=== PATIENT | female | born 1960 | race Caucasian/White ===

== ENCOUNTER → 2025-01-06 07:54 | Outpatient (REF) | payer OTHER, SELFPAY | LOC: HWWDC 07:54 | PROVIDERS: ATTENDING PHYSICIAN Family Medicine | DX: Z12.31 Encounter for screening mammogram for malignant neoplasm of breast (principal) | CPT/HCPCS: 77063; 77067 ==

== ENCOUNTER 2025-08-06 10:02 | Inpatient (IN) | payer OTHER, SELFPAY ==
[2025-08-06] VITALS (20 sets, daily range): BP systolic 101–147; BP diastolic 51–94; BMI 28.3
[2025-08-06 07:54] LABS: Hematocrit 16.5 % (37.0-47.0); Hemoglobin 4.2 g/dL (12.0-16.0); Mean Corp Hgb Conc. 25.5 g/dL (33.0-37.0); Mean Corpuscular Volume 62.7 fL (81.0-99.0); Nucleated Red Blood Cells % 0 %; Platelet Count 386 10^3/uL (130-400); Red Cell Dist. Width 21.2 % (11.5-14.5)
[2025-08-06 08:05] LABS: ALT (SGPT) 15 U/L (0-35); AST (SGOT) 17 U/L (14-36); Albumin 3.9 g/dl (3.5-5.0); Alkaline Phosphatase 64 U/L (38-126); Blood Urea Nitrogen 18 mg/dl (7-17); Calcium 8.9 mg/dl (8.4-10.2); Carbon Dioxide 25 mmol/L (22-30); Chloride 107 mmol/L (98-107); Glucose 110 mg/dl (70-99); Potassium 4.0 mmol/L (3.5-5.1); Sodium 140 mmol/L (135-145); Total Protein 6.7 g/dl (6.3-8.2); eGFR > 60.00
--- NOTE | 2025-08-06 08:21 | ED.GENMED ---
History of Present Illness
<Edis Segovia PA-C - Last Filed: 08/06/25 14:36>
General
Chief Complaint: Abnormal Lab Value
Time Seen by Provider: 08/06/25 08:08
History of Present Illness
History of Present Illness:
65-year-old female with history of anxiety and depression presents to the emergency department for eval ration of low hemoglobin. Patient states has been feeling progressively fatigued for the past month or more, had outpatient labs checked this
week that revealed a hemoglobin below 5. She denies any black or bloody stools. Reports severe exertional fatigue and muscle aches. Denies bleeding gums or easy bruising. She does note that for the past several months she has been dealing with a
chronic neck pain issue and has been taking NSAIDs but not on a daily basis, estimates 3-4 times weekly. Denies any recent steroids. No significant alcohol intake and denies tobacco use. She also reports poor oral intake and a poor appetite
during this time. Was recently started on sertraline by her primary care physician for anxiety and depression. Metabolic panel and TSH were checked approximately 1 month ago by her primary doctor, these were unremarkable
Review of Systems
<Edis Segovia PA-C - Last Filed: 08/06/25 14:36>
Review of Systems
Allergies reviewed?: Yes
All Other Systems: ROS reviewed and negative except as documented in HPI and ROS
Phy Exam
<Edis Segovia PA-C - Last Filed: 08/06/25 14:36>
Physical Exam
Physical Exam:
GEN: Well appearing albeit pale, NAD, WDWN
Eyes: PERRLA, EOMs intact, no scleral icterus
HENT: NCAT, oral mucosa moist, no JVD, no cervical adenopathy.
Lungs: CTAB, no wheezes, rales, rhonchi, normal chest wall excursion
Cardiac: RRR, no M/R/G, no peripheral edema. Radial pulses 2+ bilat
Abdomen: S, NT, ND, NABS, no masses or hepatosplenomegaly
Rectal: Scant brown stool in the rectal vault, heme-negative
Neuro: AO x 3
MSK: No gross deformity or ecchymosis. No edema. No digital clubbing
Skin: No rashes or petechiae, grossly pale
Psych: Calm, cooperative, proper hygiene
Course
<Edis Segovia PA-C - Last Filed: 08/06/25 14:36>
Orders/Labs/Results
Orders:
Orders
08/06/25 Breakfast
NPO
Allow oral meds: No
Allow clear liquids: No
NPO with Ice Chips: No
08/06/25 07:40
Complete Blood Count/With Diff Urgent
Comprehensive Metabolic Panel Urgent
Ferritin Urgent
Comment: ADD
Folate Urgent
Comment: ADD
Iron Urgent
Comment: ADD
LDH Urgent
Comment: ADD
Reticulocyte Count Urgent
Comment: ADD
TSH Reflex To Free T4 Urgent
Comment: ADD
Total Iron Binding Urgent
Comment: ADD
Vitamin B12 Urgent
Comment: ADD
08/06/25 08:04
Type+Screen Routine
BBK Wristband Number:
08/06/25 08:20
Add On- LAB Urgent
Tests Added?: iron, TIBC, ferritin
Blood Bank Products [* Blood Bank Products] Urgent
Blood Bank Products: *Packed RBC Leuko (PRBC's
Quantity: 2
Transfuse Today: Yes
Reason: Anemia
08/06/25 09:02
Add On- LAB Routine
Tests Added?: b12, folate, LDH, retics
08/06/25 09:46
Admit/Transfer Patient As Directed
Co-Sign Provider:
Level of Care: Inpatient admission
Assign to:: Medical/Surgical
Physician / Group: Trey
Diagnosis: anemia
Reason for Hospitalization: anemia
Expected length of stay greater than two midnights?: Yes
ELOS- Estimated Length of Stay in days: 3
I certify the patient meets the requirements for IP care: Yes
PRN Pain Medication Management As Directed
May give lesser potent ordered pain med per pt: Yes
preference::
Protocol:: Medication orders for pain may be administered in a
manner that supports deferring to patient preference
when the pt is:
- Requesting an ordered lesser potent pain medication.
Least to most potent pain medications are defined
as: acetaminophen < NSAID < tramadol < opioids
(morphine, oxycodone, hydromorphone).
- Requesting a lesser dose of the same medication IF
ORDERED.
- Requesting a less intrusive route of administration
if both routes are prescribed by the provider (PO <
IV).
08/06/25 09:47
Code Status As Directed
Resuscitation Status: Full Code
08/06/25 09:54
Add On- LAB Routine
Tests Added?: TSH with reflex FT4
08/06/25 10:00
0.9% Sodium Chloride [Nss (Preservative Free)] 10 ml IV BID
Flush (0.9% Sodium Chloride) [Flush (Nss)] See Dose Instructions IV PER PROTOCOL
Pantoprazole [Protonix IV] 40 mg IV BID
08/06/25 12:16
Acetaminophen [Tylenol] 650 mg PO Q4HPRN PRN
Bisacodyl [Dulcolax] 10 mg RECTAL [id number] PRN
Calcium 200mg(Ca. Carb. 500mg) [Tums Chewable Tablet] 200 mg PO BIDPRN PRN GERD
Dextrose 5%/Lactringers 1000ML [D5lr] 1,000 ml IV 70 mls/hr
Docusate W/Senna [Senokot-S] 1 tablet PO BIDPRN PRN
Ondansetron Injectable [Zofran] 4 mg IV Q8HPRN PRN
Polyethylene Glycol Powder [Miralax] 17 grams PO DAILYPRN PRN
Tramadol HCl [Ultram] 50 mg PO Q6HPRN PRN
08/06/25 12:16
GASTROINTESTINAL CONSULT Routine
Consulting Provider: Tabby Portillo
Was physician already notified: Yes
Reason for consult: anemia, suspect PUD
Activity As Directed
Activity Level: Out of Bed-Early Mobility
Pneumatic Compression Sleeves As Directed
Type: Knee high
Vital Signs As Directed
Frequency: Per unit guidelines
DX Deep Vein Thrombosis Video Routine
08/06/25 12:32
H&H Q6H
08/06/25 14:00
Ferric Gluconate [Ferrlecit] 125 mg 0.9% Sodium Chloride 100 ml [Nss] 100 ml IV DAILY@1400
08/06/25 18:16
H&H Q6H
08/06/25 22:00
Montelukast Sodium [Singulair] 10 mg PO HS
Sertraline HCl [Zoloft] 25 mg PO HS
08/07/25 00:16
H&H Q6H
08/07/25 06:16
H&H Q6H
08/07/25 08:00
Cholecalciferol (Vitamin D3) [VITAMIN D3 (cholecalciferol)] 25 mcg PO DAILY
08/07/25 12:16
H&H Q6H
Abnormal Lab Results
08/06/25 08/06/25
07:40 08:04
RBC 2.63 L 10^6/uL
(4.20-5.40)
Hgb 4.2 L* g/dL
(12.0-16.0)
Hct 16.5 L* %
(37.0-47.0)
MCV 62.7 L fL
(81.0-99.0)
MCH 16.0 L pg
(27.0-31.0)
MCHC 25.5 L g/dL
(33.0-37.0)
RDW 21.2 H %
(11.5-14.5)
MPV 10.7 H fL
(7.4-10.4)
BUN 18 H mg/dl
(7-17)
Glucose 110 H mg/dl
(70-99)
Iron 21 L ug/dl
(37-170)
TIBC 498 H ug/dl
(265-497)
% Saturation 4 L %
(20-50)
Crossmatch IS Only See Detail
08/06/25 07:40
08/06/25 07:40
Vital Signs
Initial and Last Documented VS:
Initial Vital Signs
Temp Pulse Resp BP Pulse Ox
98.6 F 91 16 101/51 97
08/06/25 07:20 08/06/25 07:20 08/06/25 07:20 08/06/25 07:20 08/06/25 07:20
Last Documented Vital Signs
Temp Pulse Resp BP Pulse Ox
98.2 F 82 18 141/66 99
08/06/25 13:27 08/06/25 13:27 08/06/25 13:27 08/06/25 13:27 08/06/25 11:30
<Jacoby Ley MD - Last Filed: 08/06/25 08:48>
Orders/Labs/Results
Orders:
Orders
08/06/25 Breakfast
NPO
Allow oral meds: No
Allow clear liquids: No
NPO with Ice Chips: No
08/06/25 07:40
Complete Blood Count/With Diff Urgent
Comprehensive Metabolic Panel Urgent
Ferritin Urgent
Comment: ADD
Folate Urgent
Comment: ADD
Iron Urgent
Comment: ADD
LDH Urgent
Comment: ADD
Reticulocyte Count Urgent
Comment: ADD
TSH Reflex To Free T4 Urgent
Comment: ADD
Total Iron Binding Urgent
Comment: ADD
Vitamin B12 Urgent
Comment: ADD
08/06/25 08:04
Type+Screen Routine
BBK Wristband Number:
08/06/25 08:20
Add On- LAB Urgent
Tests Added?: iron, TIBC, ferritin
Blood Bank Products [* Blood Bank Products] Urgent
Blood Bank Products: *Packed RBC Leuko (PRBC's
Quantity: 2
Transfuse Today: Yes
Reason: Anemia
08/06/25 09:02
Add On- LAB Routine
Tests Added?: b12, folate, LDH, retics
08/06/25 09:46
Admit/Transfer Patient As Directed
Co-Sign Provider:
Level of Care: Inpatient admission
Assign to:: Medical/Surgical
Physician / Group: Trey
Diagnosis: anemia
Reason for Hospitalization: anemia
Expected length of stay greater than two midnights?: Yes
ELOS- Estimated Length of Stay in days: 3
I certify the patient meets the requirements for IP care: Yes
PRN Pain Medication Management As Directed
May give lesser potent ordered pain med per pt: Yes
preference::
Protocol:: Medication orders for pain may be administered in a
manner that supports deferring to patient preference
when the pt is:
- Requesting an ordered lesser potent pain medication.
Least to most potent pain medications are defined
as: acetaminophen < NSAID < tramadol < opioids
(morphine, oxycodone, hydromorphone).
- Requesting a lesser dose of the same medication IF
ORDERED.
- Requesting a less intrusive route of administration
if both routes are prescribed by the provider (PO <
IV).
08/06/25 09:47
Code Status As Directed
Resuscitation Status: Full Code
08/06/25 09:54
Add On- LAB Routine
Tests Added?: TSH with reflex FT4
08/06/25 10:00
0.9% Sodium Chloride [Nss (Preservative Free)] 10 ml IV BID
Flush (0.9% Sodium Chloride) [Flush (Nss)] See Dose Instructions IV PER PROTOCOL
Pantoprazole [Protonix IV] 40 mg IV BID
08/06/25 12:16
Acetaminophen [Tylenol] 650 mg PO Q4HPRN PRN
Bisacodyl [Dulcolax] 10 mg RECTAL [id number] PRN
Calcium 200mg(Ca. Carb. 500mg) [Tums Chewable Tablet] 200 mg PO BIDPRN PRN GERD
Dextrose 5%/Lactringers 1000ML [D5lr] 1,000 ml IV 70 mls/hr
Docusate W/Senna [Senokot-S] 1 tablet PO BIDPRN PRN
Ondansetron Injectable [Zofran] 4 mg IV Q8HPRN PRN
Polyethylene Glycol Powder [Miralax] 17 grams PO DAILYPRN PRN
Tramadol HCl [Ultram] 50 mg PO Q6HPRN PRN
08/06/25 12:16
GASTROINTESTINAL CONSULT Routine
Consulting Provider: Tabby Portillo
Was physician already notified: Yes
Reason for consult: anemia, suspect PUD
Activity As Directed
Activity Level: Out of Bed-Early Mobility
Pneumatic Compression Sleeves As Directed
Type: Knee high
Vital Signs As Directed
Frequency: Per unit guidelines
DX Deep Vein Thrombosis Video Routine
08/06/25 12:32
H&H Q6H
08/06/25 14:00
Ferric Gluconate [Ferrlecit] 125 mg 0.9% Sodium Chloride 100 ml [Nss] 100 ml IV DAILY@1400
08/06/25 18:16
H&H Q6H
08/06/25 22:00
Montelukast Sodium [Singulair] 10 mg PO HS
Sertraline HCl [Zoloft] 25 mg PO HS
08/07/25 00:16
H&H Q6H
08/07/25 06:16
H&H Q6H
08/07/25 08:00
Cholecalciferol (Vitamin D3) [VITAMIN D3 (cholecalciferol)] 25 mcg PO DAILY
08/07/25 12:16
H&H Q6H
Abnormal Lab Results
08/06/25 08/06/25
07:40 08:04
RBC 2.63 L 10^6/uL
(4.20-5.40)
Hgb 4.2 L* g/dL
(12.0-16.0)
Hct 16.5 L* %
(37.0-47.0)
MCV 62.7 L fL
(81.0-99.0)
MCH 16.0 L pg
(27.0-31.0)
MCHC 25.5 L g/dL
(33.0-37.0)
RDW 21.2 H %
(11.5-14.5)
MPV 10.7 H fL
(7.4-10.4)
BUN 18 H mg/dl
(7-17)
Glucose 110 H mg/dl
(70-99)
Iron 21 L ug/dl
(37-170)
TIBC 498 H ug/dl
(265-497)
% Saturation 4 L %
(20-50)
Crossmatch IS Only See Detail
08/06/25 07:40
08/06/25 07:40
Vital Signs
Initial and Last Documented VS:
Initial Vital Signs
Temp Pulse Resp BP Pulse Ox
98.6 F 91 16 101/51 97
08/06/25 07:20 08/06/25 07:20 08/06/25 07:20 08/06/25 07:20 08/06/25 07:20
Last Documented Vital Signs
Temp Pulse Resp BP Pulse Ox
98.2 F 82 18 141/66 99
08/06/25 13:27 08/06/25 13:27 08/06/25 13:27 08/06/25 13:27 08/06/25 11:30
<Edis Segovia PA-C - Last Filed: 08/06/25 14:36>
MDM/Problems Addressed
MDM/Problems Addressed:
Due to severity of new anemia we will admit for further workup and blood transfusions. She has heme-negative stool however this does not completely rule out potential for GI bleeding, her essentially normal BUN supports the idea of anemia not due
to GI bleeding. She is clinically stable, blood products ordered in the ED. Of note her hemoglobin was 12.0 in October of this year according to results faxed from her primary care physician
<dEis Segovia PA-C - Last Filed: 08/06/25 14:36>
*Pulse Oximetry
SaO2: 97
Oxygen Mode of Delivery: Room air
Patient hypoxic: no
*Critical Care Note
Total Time (30-74mins, 75-104mins- exclusive of procedures): Not Applicable
ED Attending Note
<Edis Segovia PA-C - Last Filed: 08/06/25 14:36>
-
Portions of this chart may have been created with voice recognition software.� Occasional wrong word or��sound alike� substitutions may have occurred due to the inherent limitations of voice recognition software.
<Jacoby Ley MD - Last Filed: 08/06/25 08:48>
ED Attending Note
Patient seen and examined by attending physician: Yes
ED Attending Note:
I have seen and evaluated the patient with a [id number] encounter. I have spoken to the advance practicer provider and involved in the medical history, the physical exam, medical decision making.
Evaluation and management service: agree unless noted differently below.
Results interpretation: agree unless noted differently below.
Focused HPI: 65-year-old female with history of hyperlipidemia who presents to the ER for evaluation of severe fatigue and shortness of breath, outpatient labs showed that she is severely anemic. Patient reports that for the past 2 or 3 months she
has had increased fatigue/exhaustion and has noted shortness of breath with exertion. She says symptoms have been progressively worse. 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
season. Saw her primary doctor who initially thought it could be from stress and she was recently started on Zoloft however symptoms were worsening which ultimately prompted lab work. Blood drawn yesterday showed hemoglobin of 4 and patient was
referred to the ER. She denies any history of anemia aside from mild transient anemia in her teen years. She denies any history of bleeding including vaginal bleeding (she is postmenopausal), GI bleeding. She denies any history of alcohol use.
She does admit that her appetite has been poor lately but generally eating and drinking appropriately.
Physical exam: Awake alert no distress. Vital signs are normal including blood pressure 101/51 with heart rate in the 80s during my assessment. She is somewhat pale appearing. Hemoccult negative per PA exam.
Medical Decision Makin-year-old female presents with fatigue and shortness of breath, noted to have new severe anemia on outpatient labs. Labs drawn here confirm significant anemia with a hemoglobin of 4.2 microcytic with MCV of 62.7. Plan to
transfuse PRBCs for symptomatic anemia, need for continued workup. Will send iron studies prior to transfusion.
Discharge Plan
Departure
Patient Disposition: Admit
Date of Disposition: 08/06/25
Time of Disposition: 09:04
Admit to: Med/Surg
Presentation/result/management discussed w/ accepting MD/DO: Hospitalist
Discharge Problem:
Symptomatic anemia
Interventions
Interventions:
*Risk Screen - Suicide Last Done: 08/06/25 07:20
*General Assessment Last Done: 08/06/25 07:20
*Neglect/Abuse Screening Last Done: 08/06/25 09:37
*ED- Fall Risk Assessment Last Done: 08/06/25 11:16
*ED COVID-19 Vaccine History Last Done: 08/06/25 07:20
*ED Influenza Vaccine History Last Done: 08/06/25 07:20
*Nursing Disposition Last Done: 08/06/25 11:16
Discharge Date and Time
Discharge Date/Time: 08/06/25 11:17
[2025-08-06 08:41] LABS: Iron 21 ug/dl (37-170)
[2025-08-06 08:50] LABS: Total Iron Binding Capacity 498 ug/dl (265-497)
[2025-08-06] MEDS: PROTONIX IV 40 MG IV ×2 (09:43→20:02)
[2025-08-06] MEDS: NSS (PRESERVATIVE FREE) 10 ML IV ×2 (09:43→20:02)
--- NOTE | 2025-08-06 09:49 | HPS.HSE ---
Family Physician
-
Family Physician: Patricia Alberts
Chief Complaint
-
weakness
History of Present Illness
65yo F with PMHx of anxiety, neck pain 2/2 disk bulge, GERD came with worsening weakness for 2 month, found severe anemia. FOBT neg in ED. Also c/o chronic indigestion, that recently significantly worsened. Using NSAIDs for neck pain. ALso episodes
of dark, (but not frankly black) stool
Medical History
Past Medical History
Past Medical History: Reports Other
Additional Past Medical History:
see above
Past Surgical History: Reports None
Social History
Tobacco: Non-smoker
Alcohol: Occasional
Drug: None
Family History
Family History: Not pertinent
Allergies / Home Medications
Allergies reflects when Allergies were last updated in [employer].
Home Medications with original date entered in [employer]
Allergy/Medication List:
Allergies
Allergy/AdvReac Type Severity Reaction Status Date / Time
No Known Allergies Allergy Verified 08/06/25 07:23
Home Medications
calcium carbonate (Tums) 200 mg PO BIDPRN PRN GERD 08/06/25
cholecalciferol (vitamin D3) 25 mcg (1,000 unit) tablet (Vitamin D3) 25 mcg PO DAILY Supplement 08/06/25
ibuprofen 200 mg capsule (Advil Liqui-Gel) 200 mg PO Q6HPRN PRN MILD PAIN 08/06/25
montelukast 10 mg tablet (Singulair) 10 mg PO HS Allergies 08/06/25
sertraline 25 mg tablet 25 mg PO HS Mental Health/Anxiety 08/06/25
Review of Systems
-
History Source: Patient
A 12 point ROS was completed and negative except as noted: Yes
Constitutional: Reports Fatigue and Sleep Disturbance
Physical Exam
Vital Signs
Vital Signs
Temp Pulse Resp BP Pulse Ox
98.6 F 89 15 101/51 97
08/06/25 07:20 08/06/25 08:15 08/06/25 08:15 08/06/25 07:20 08/06/25 08:21
Physical Exam
General: No Apparent Distress, Comfortable and Conversant
HEENT: NormoCephalic, Anicteric and Moist mucous membranes; No [place] Conjunctivae
Respiratory: Clear; No Wheezes or Crackles
Cardiac: S1/S2 and Regular Rhythm; No Tachycardia
GI: Soft, Non Tender and Non Distended
Genito-urinary: No costovertebral tender
Musculoskeletal: No Clubbing, No Cyanosis and No Edema
Skin: Warm; No Rash or Jaundice
Neuro: Awake, Alert, Oriented and AO x 3
Psych: Calm
Laboratory Results
-
08/06/25 07:40
08/06/25 07:40
Laboratory Results
Total Bilirubin 0.7 mg/dl (0.2-1.3) 08/06/25 07:40
AST 17 U/L (14-36) 08/06/25 07:40
ALT 15 U/L (0-35) 08/06/25 07:40
Alkaline Phosphatase 64 U/L (38-126) 08/06/25 07:40
Data Reviewed
-
Lab Data: Labs Reviewed by me
Impression/Plan
-
A/P:
#Acute on chronic blood loss anemia, symptomatic most likely 2/2 PUD
PPI BID IV
NPO pending GI consult
Serial H&H, transfuse to keep Hgb>7.0
Avoid antiplatelets, anticoag, NSAIDs
#Anxiety d/o
#Chronic neck pain
cont home meds
pain meds
continue to work with established orthopedics: planned for laser therapy and possible injections as outpatient
DVT ppx SCDs
Full code
I have spent at least 76min reviewing chart, test results, communication with consultants and providing direct patient care
[2025-08-06 10:14] LABS: Reticulocyte Count 1.0 % (0.4-2.8)
[2025-08-06 10:15] LABS: LDH 185 U/L (120-246)
[2025-08-06 10:53] LABS: Normal RBC Morphology No
[2025-08-06 10:54] LABS: Anisocytosis 2+; Hypochromasia 3+; Ovalocytes 2+; Polychromasia 2+
[2025-08-06 10:55] LABS: Acanthocytes FEW
[2025-08-06 13:32] LABS: Hematocrit 19.9 % (37.0-47.0); Hemoglobin 5.5 g/dL (12.0-16.0)
--- NOTE | 2025-08-06 14:31 | CON.GI ---
Consultation
-
Date/Time Consultation Requested: 08/06/2025
Date/Time Consultation Performed: 08/06/2025
Requesting Provider: Emergency room
Performing Provider: Dr. Portillo
Reason for Consultation: Symptomatic iron deficiency anemia requiring transfusion
Medical History
Chief Complaint / HPI
Chief Complaint: Symptomatic anemia
History of Present Illness:
Yeni is a 65-year-old female with history of chronic intermittent dysphagia to solids, progressive worsening regurgitation and heartburn not on PPI, family history of colon cancer, chronic neck pain on roughly twice a week NSAIDs who was seen by
her PCP on 1028 for a few months of significant fatigue, dyspnea on exertion found to have a hemoglobin of 4.4 with an MCV of 63 sent to the emergency room for iron deficiency anemia.
Patient states she has lost roughly 20 pounds from lack of appetite over the past couple of months. Her upper GI symptoms have worsened and she does get nocturnal regurgitation that can wake her from sleep. She does not feel like the dysphagia has
progressed or increased in frequency.
Denies any abdominal pain. No abdominal surgeries. Her last endoscopy was in [address] 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
biopsied. 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 No mention of the submucosal lesion in 2018. Last colonoscopy which is done every 5 years due to family history was in 2022 and normal with a good prep.
Patient denies any overt bleeding. No epistaxis gum bleeding, no period in over 10 years. Her stools are brown and in the emergency room were heme-negative.
She has never had a transfusion and was never told she was anemic.
I reviewed her blood work from November 2024 from her [email or web address] which showed a hemoglobin of 12 with a normal MCV.
08/2023- colon sosa good prep to TI - The examined portion of the ileum was normal. entire colon normal, IH
07/2018- EGD sosa - Tortuous esophagus - Z-line variable, 35 cm from the incisors. Biopsied. - Small hiatal hernia - No gross lesions in the stomach - Normal examined duodenum. bx neg metaplasia, h pylori
07/2018 colon salguti - The examined portion of the ileum was normal. - One 2 mm polyp in the ascending colon, removed with a jumbo cold forceps. Resected and retrieved - Internal hemorrhoids. bx lymphoid aggregate
09/2013 EGD salguti - Normal examined duodenum. - Congestive gastropathy. Biopsied. 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 Biopsied. - Hiatus hernia. - Esophageal polyp(s) were found. Biopsied-line variable, 35
cm from the incisors. Biopsied - No gross lesions in esophagus. bx GE junction goblet cell metaplasia no dysplasia mass neg
09/2013 colon salguti Non-thrombosed external hemorrhoids found on perianal exam - The examined portion of the ileum was normal.- One 1 mm polyp in the transverse colon. Resected and
retrieved - One 1 mm polyp in the sigmoid colon. Resected and retrieved. bx adenomatous polyps, benign HP polyp, no adenoma seen
11/2009 EGD chirla Hiatus hernia - Esophageal mucosal changes suspicious for eosinophilic esophagitis- Normal examined duodenum.
Past Medical History
Past Medical History: Other (Chronic GERD, not on PPI, musculoskeletal pain on twice a week NSAIDs)
Past Surgical History: None
Social History
Tobacco: Non-Smoker
Alcohol: None
Drug: None
Personal:
Living: With Family
Family History
Family History: Cancer (Father with colon cancer)
Allergies / Home Medications
Allergy/AdvReac Type Severity Reaction Status Date / Time
No Known Allergies Allergy Verified 08/06/25 07:23
�Medication �Instructions �Recorded
calcium carbonate (Tums) 200 mg PO BIDPRN PRN GERD 08/06/25
cholecalciferol (vitamin D3) 25 25 mcg PO DAILY Supplement 08/06/25
mcg (1,000 unit) tablet (Vitamin
D3)
ibuprofen 200 mg capsule (Advil 200 mg PO Q6HPRN PRN MILD PAIN 08/06/25
Liqui-Gel)
montelukast 10 mg tablet 10 mg PO HS Allergies 08/06/25
(Singulair)
sertraline 25 mg tablet 25 mg PO HS Mental Health/Anxiety 08/06/25
Review of Systems
-
History Source: Patient
All other systems: A 12 pt ROS was Negative except as stated above in HPI
Vital Signs
Temp Pulse Resp BP Pulse Ox
98.2 F 82 18 141/66 99
08/06/25 13:27 08/06/25 13:27 08/06/25 13:27 08/06/25 13:27 08/06/25 11:30
Physical Exam
Exam
General: Well Developed, Well Nourished, No Apparent Distress and Comfortable
HEENT: Anicteric
Respiratory: Clear
GI: Soft and Non Tender
Neuro: AO x 3
Psych: Calm
Results
WBC 5.7 10^3/uL (4.8-10.8) 08/06/25 07:40
Hgb 5.5 g/dL (12.0-16.0) L* D 08/06/25 12:32
Hct 19.9 % (37.0-47.0) L* 08/06/25 12:32
MCV 62.7 fL (81.0-99.0) L 08/06/25 07:40
Plt Count 386 10^3/uL (130-400) 08/06/25 07:40
Absolute Neuts (auto) 3.5 10^3/uL (1.4-6.5) 08/06/25 07:40
Sodium 140 mmol/L (135-145) 08/06/25 07:40
Potassium 4.0 mmol/L (3.5-5.1) 08/06/25 07:40
Chloride 107 mmol/L (98-107) 08/06/25 07:40
Carbon Dioxide 25 mmol/L (22-30) 08/06/25 07:40
BUN 18 mg/dl (7-17) H 08/06/25 07:40
Creatinine 0.8 mg/dL (0.6-1.0) 08/06/25 07:40
Calcium 8.9 mg/dl (8.4-10.2) 08/06/25 07:40
Total Bilirubin 0.7 mg/dl (0.2-1.3) 08/06/25 07:40
AST 17 U/L (14-36) 08/06/25 07:40
ALT 15 U/L (0-35) 08/06/25 07:40
Alkaline Phosphatase 64 U/L (38-126) 08/06/25 07:40
Diagnostic Image Results:
08/2023- colon salguti good prep to TI - The examined portion of the ileum was normal. entire colon normal, IH
07/2018- EGD salguti - Tortuous esophagus - Z-line variable, 35 cm from the incisors. Biopsied. - Small hiatal hernia - No gross lesions in the stomach - Normal examined duodenum. bx neg metaplasia, h pylori
07/2018 colon salguti - The examined portion of the ileum was normal. - One 2 mm polyp in the ascending colon, removed with a jumbo cold forceps. Resected and retrieved - Internal hemorrhoids. bx lymphoid aggregate
09/2013 EGD salguti - Normal examined duodenum. - Congestive gastropathy. Biopsied. 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 Biopsied. - Hiatus hernia. - Esophageal polyp(s) were found. Biopsied-line variable, 35
cm from the incisors. Biopsied - No gross lesions in esophagus. bx GE junction goblet cell metaplasia no dysplasia mass neg
09/2013 colon salguti Non-thrombosed external hemorrhoids found on perianal exam - The examined portion of the ileum was normal.- One 1 mm polyp in the transverse colon. Resected and
retrieved - One 1 mm polyp in the sigmoid colon. Resected and retrieved. bx adenomatous polyps, benign HP polyp, no adenoma seen
11/2009 EGD chirla Hiatus hernia - Esophageal mucosal changes suspicious for eosinophilic esophagitis- Normal examined duodenum.
Assessment / Plan
-
Yeni is a 65-year-old female with history of chronic intermittent dysphagia to solids, progressive worsening regurgitation and heartburn not on PPI, family history of colon cancer, chronic neck pain on roughly twice a week NSAIDs who was seen by
her PCP on 1027 for a few months of significant fatigue, dyspnea on exertion found to have a hemoglobin of 4.4 with an MCV of 63 sent to the emergency room for iron deficiency anemia.
# Symptomatic microcytic iron deficiency anemia, heme-negative, hemodynamically stable
-- Normal hemoglobin in November 2024
-- Takes twice a week NSAIDs for neck pain
-- No overt bleeding, heme-negative
--Worsening upper GI symptoms with nonprogressive dysphagia, worsening heartburn and regurgitation with nocturnal awakenings, not on PPI taking Tums more regularly
-- 20 pound weight loss; up-to-date with mammogram
Plan for EGD and colonoscopy tomorrow
Once daily PPI is fine. DC Q6 hemoglobins, every 12 is fine, check coags, CMP in the morning
Clear liquid diet, n.p.o. 4 hours prior to procedure
IV iron
Data Reviewed
-
Old Records: Reviewed
Time spent with patient (in minutes): 62
-
-
Thank you for consultation and allowing me to participate in the patient's care. Please call the pest control worker GI physician during the after hours with any questions or concerns.
[2025-08-06] MEDS: FERRLECIT 110 MG IV (15:06)
[2025-08-06] MEDS: D5LR 1000 IV (15:09)
[2025-08-06 15:25] LABS: Ferritin 4.9 ng/ml (11.1-264.0)
[2025-08-06 15:57] LABS: Folate 18.8 ng/ml (2.76-20); Vitamin B12 327 pg/ml (239-931)
[2025-08-06] MEDS: NULYTELY SOLUTION 4 LITERS PO (17:26)
[2025-08-06] MEDS: ZOFRAN 4 MG IV (20:00)
[2025-08-06 21:07] LABS: Hemoglobin 8.4 g/dL (12.0-16.0)
[2025-08-06] MEDS: ZOLOFT 25 MG PO (21:41)
[2025-08-07] MEDS: PROTONIX IV 40 MG IV ×2 (07:35→20:06)
[2025-08-07] MEDS: NSS (PRESERVATIVE FREE) 10 ML IV ×2 (07:35→20:06)
[2025-08-07 08:29] LABS: Hemoglobin 7.9 g/dL (12.0-16.0)
[2025-08-07 08:30] VITALS: BP 125/58
[2025-08-07 08:39] LABS: INR 1.06; PT 14.2 Sec (11.4-14.6)
[2025-08-07 08:40] LABS: APTT 28.3 Sec (23.4-35.0)
[2025-08-07 09:48] VITALS: BP 96/66
[2025-08-07 10:00] VITALS: BP 101/67
--- NOTE | 2025-08-07 10:24 | PTCARENOTE ---
Pt returned from GI lab at 1015, assisted x 1 back to bed. Informed pt her diet was changed to regular. She will order.
--- NOTE | 2025-08-07 10:27 | W.PN.HOSP.TC ---
Today's Communication/Plan
-
see PN
Assessment / Plan
Assessment / Plan
65yo F with PMHx of anxiety, neck pain 2/2 disk bulge, GERD came with worsening weakness for 2 month, found severe anemia. FOBT neg in ED. Also c/o chronic indigestion, that recently significantly worsened. Using NSAIDs for neck pain. ALso episodes
of dark, (but not frankly black) stool. Improved after 3 units PRBC, GI for EGD/colonoscopy
A/P:
#Acute on chronic blood loss anemia, symptomatic most likely 2/2 PUD
ADELINA
PPI BID IV
NPO pending GI consult
Serial H&H, transfuse to keep Hgb>7.0
Avoid antiplatelets, anticoag, NSAIDs
If EGD/COlonoscopy unremarkable - outpatient capsule endoscopy and Hematology, however no concern for hemolysis as of inpatient stay with normal LDH
#Anxiety d/o
#Chronic neck pain
cont home meds
pain meds
continue to work with established orthopedics: planned for laser therapy and possible injections as outpatient
DVT ppx SCDs
Full code
I have spent at least 56min reviewing chart, test results, communication with consultants and providing direct patient care
Anticipated Discharge: Within 24 hours
Subjective/Interval History
-
Date of Service: August 07, 2025
Objective Data
-
Labs:
Laboratory Results
08/07/25
08:12
Hgb 7.9 L
PT 14.2
INR 1.06
APTT 28.3
Vital Signs:
Vital Signs
Temp Pulse Resp BP Pulse Ox
98.6 F 74 14 101/67 99
08/07/25 10:03 08/07/25 10:00 08/07/25 10:00 08/07/25 10:00 08/07/25 10:03
I&O
08/06/25 08/07/25 08/08/25
06:59 06:59 06:59
Intake Total 1841
Balance 1841
Review of Systems
-
History Source: Patient
All other systems: Reviewed and negative
Physical Exam
-
General: No Apparent Distress
HEENT: Normocephalic
Respiratory: Clear to Auscultation
Cardiac: Regular Rhythm
GI: Soft, Nontender and Nondistended
Genito-urinary: No Costovertebral Tender
Musculoskeletal: No Clubbing, No Cyanosis and No Edema
Neuro: Awake, Alert, Oriented and AO x 3
Psych: Calm
[2025-08-07] MEDS: VITAMIN D3 (cholecalciferol) 25 MCG PO (11:42)
[2025-08-07] MEDS: FERRLECIT 110 MG IV (13:01)
--- NOTE | 2025-08-07 14:34 | PN.CDI ---
CDI
- -
CDI:
Physician Documentation Request
Admit Date: 08/06/25 10:02
Dear Doctor,
Please review the following and provide your response in the progress notes.
Clinical Indicators:
Pt admitted with Acute on Chronic Bloodloss anemia
Colonoscopy report, ' Iron deficiency likely from hiatal hernia and David's erosions.... PPi BID for 1 month then daily indefinitely...'
Please clarify the suspected acuity of the ( David erosions ).
Acute
Chronic
Acute on Chronic
'Other ( please specify)
Use of terms such as suspected, likely, concern for, or probable (associated with a specific diagnosis that is being evaluated, monitored, or treated as if it exists) are acceptable and can be coded in the inpatient setting, when documented at the
time of discharge.
Thank you,
Kindra Guerrero RN
CDI Specialist
[facility] [employer]
Please use your independent medical judgment in providing your response.
--- NOTE | 2025-08-07 14:40 | PN.CDI ---
CDI
- -
CDI:
Physician Documentation Request
Admit Date: 08/06/25 10:02
Dear Doctor Trey,
Please review the following and provide your response in the progress notes.
Clinical Indicators:
Pt admitted with Acute on Chronic Bloodloss anemia
Nutrition consult 08/06,' Pt reports significant 20lb, 11.4% weight loss x 2 months. Pt and family report decreased intake at all 3 meals and elimination of between meal snacks. Pt unclear about the cause of decreased appetite, denying
N/V/difficulty swallowing. Given hx dysphagia, it would be beneficial to have swallow evaluation when diet advanced. Pt meets criteria for severe protein calorie malnutrition of chronic illness with >7.5% wt loss x 3 months, prolonged poor intake
prior to hospital admit <75% for >1 month. Nutrition to follow diet advancement, results GI work up as per level of care....'
Based on the above information and your assessment, which of the following most accurately represents the patient's nutritional status?
Severe Protein Calorie Malnutrition
Other (please specify)
[place] Criteria (ACP Hospitalist 2017)
2 or more criteria must be present for either
non severe or severe malnutrition
Note that the criteria differs related to the
presence of an acute or chronic illness
Acute Illness Chronic Illness
Energy Intake Non Severe: <75% for >7 days Non Severe: <75% for >1 month
Severe: <50% for >5 days Severe: <75% for >1 month
Weight Loss Non Severe: 1-2% over 1 week Non Severe: 5% over 1 month
5% over 1 month 7.5% over 3 months
7.5% over 3 months 10% over 6 months
1 year N/A 20% over 1 year
Severe: >2% over 1 week Severe: >5% over 1 month
>5% over 1 month >7.5% over 3 months
>7.5% over 3 months >10% over 6 months
1 year N/A >20% over 1 year
Body Fat Non Severe: Mild Decrease Non Severe: Mild Loss
Severe: Moderate Decrease Severe: Severe Loss
Muscle Mass Non Severe: Mild Decrease Non Severe: Mild Loss
Severe: Moderate Decrease Severe: Severe Loss
Fluid Accumulation Non Severe: Mild Accumulation Non Severe: Mild Accumulation
Severe: Moderate to severe Severe: Moderate to severe
accumulation accumulation
Reduced Zoology Teacher Strength Non Severe: N/A Non Severe: N/A
Severe: Measurably reduced Severe: Measurably reduced
Use of terms such as suspected, likely, concern for, or probable (associated with a specific diagnosis that is being evaluated, monitored, or treated as if it exists) are acceptable and can be coded in the inpatient setting, when documented at the
time of discharge.
Thank you,
Kindra Guerrero RN
CDI Specialist
[facility]
Please use your independent medical judgment in providing your response.
[2025-08-07 15:00] VITALS: BP 119/65
--- NOTE | 2025-08-07 15:08 | W.PN.UPDATE ---
Addendum entered and electronically signed by Osvaldo Dennis MD 08/07/25 15:11:
For clarification, unable to determine if erosions are acute or chronic, though favor chronic given her iron deficiency and no signs of brisk active bleeding now..
Original Note:
--- NOTE | 2025-08-07 17:01 | CM ---
Alert awake oriented patient who lives with her Boris in a 2 story home with 2 steps to enter and 0 steps to bed/bathroom. She is independent in activates of daily living.She does drive .No DME.Offered VN she declined.
No VN in past . No SNF hx
Pharmacy [facility]
PCP DR Patricia Alberts
PLAN Home no needs
[2025-08-07] MEDS: FLUSH (NSS) 1 FLUSH IV (20:06)
[2025-08-07] MEDS: ZOLOFT 25 MG PO (22:23)
[2025-08-07 23:14] VITALS: BP 114/63
[2025-08-08 07:36] LABS: Hematocrit 25.8 % (37.0-47.0); Hemoglobin 7.7 g/dL (12.0-16.0)
[2025-08-08] MEDS: NSS (PRESERVATIVE FREE) 10 ML IV (07:36)
[2025-08-08] MEDS: PROTONIX IV 40 MG IV (07:37)
[2025-08-08] MEDS: VITAMIN D3 (cholecalciferol) 25 MCG PO (07:37)
[2025-08-08 07:47] VITALS: BP 131/70
--- NOTE | 2025-08-08 10:16 | W.PN.HOSP.TC ---
Today's Communication/Plan
-
dc
Assessment / Plan
Assessment / Plan
65yo F with PMHx of anxiety, neck pain 2/2 disk bulge, GERD came with worsening weakness for 2 month, found severe anemia. FOBT neg in ED. Also c/o chronic indigestion, that recently significantly worsened. Using NSAIDs for neck pain. ALso episodes
of dark, (but not frankly black) stool. Improved after 3 units PRBC, GI for EGD/COlonoscopy: Medium-sized hiatal hernia, erosive gastropathy without acute bleeding, hemorrhoids. Weekly CBC with PCP, if worsening anemia - advised Hematology referral
from PCP.Advised age appropriate CA screening with PCP. Avoid NSAIDs. Medcially stable and asymptomatic on the day of D/C to home
A/P:
#Acute on chronic blood loss anemia, symptomatic most likely 2/2 PUD
#ADELINA
PPI BID IV
NPO pending GI consult
Serial H&H, transfuse to keep Hgb>7.0
Avoid antiplatelets, anticoag, NSAIDs
EGD/COlonoscopy: Medium-sized hiatal hernia, erosive gastropathy without acute bleeding, hemorrhoids - outpatient capsule endoscopy and Hematology, however no concern for hemolysis as of inpatient stay with normal LDH.
Weekly CBC with PCP, if worsening anemia - advised Hematology referral from PCP
#Weight loss without signs of malnutrition
lost about 20lbs over 2 months due to absent appetite
reported good appetite in the hospital, most likely was 2/2 anemia and gastric erosions
Advised age appropriate CA screening with PCP
#Anxiety d/o
#Chronic neck pain
cont home meds
pain meds
continue to work with established orthopedics: planned for laser therapy and possible injections as outpatient
DVT ppx SCDs
Full code
I have spent at least 36min reviewing chart, test results, communication with consultants and providing direct patient care
Anticipated Discharge: Today
Subjective/Interval History
-
Date of Service: August 08, 2025
Objective Data
-
Labs:
Laboratory Results
08/08/25
07:16
Hgb 7.7 L
Hct 25.8 L
Vital Signs:
Vital Signs
Temp Pulse Resp BP Pulse Ox
97.7 F 82 18 131/70 93
08/08/25 07:47 08/08/25 07:47 08/08/25 07:47 08/08/25 07:47 08/08/25 07:47
I&O
08/07/25 08/08/25 08/09/25
06:59 06:59 05:59
Intake Total 1841 110 / 110
Balance 1841 110 / 110
Review of Systems
-
History Source: Patient
All other systems: Reviewed and negative
Physical Exam
-
General: No Apparent Distress
HEENT: Normocephalic
Respiratory: Clear to Auscultation
GI: Soft, Nontender and Nondistended
Musculoskeletal: No Clubbing, No Cyanosis and No Edema
Neuro: Awake, Alert, Oriented and AO x 3
Psych: Calm
--- NOTE | 2025-08-08 10:25 | W.DCSUMMARY ---
Discharge Summary
Discharge Data
Date of Admission: 08/06/25
Date of Discharge: 08/08/25
-
Pending Results: No
Hospital Course
65yo F with PMHx of anxiety, neck pain 2/2 disk bulge, GERD came with worsening weakness for 2 month, found severe anemia. FOBT neg in ED. Also c/o chronic indigestion, that recently significantly worsened. Using NSAIDs for neck pain. ALso episodes
of dark, (but not frankly black) stool. Improved after 3 units PRBC, GI for EGD/COlonoscopy: Medium-sized hiatal hernia, erosive gastropathy without acute bleeding, hemorrhoids. Weekly CBC with PCP, if worsening anemia - advised Hematology referral
from PCP.Advised age appropriate CA screening with PCP. Avoid NSAIDs. Medcially stable and asymptomatic on the day of D/C to home
I have spent at least 36min reviewing chart, test results, communication with consultants and providing direct patient care
Patient was managed for:
#Acute on chronic blood loss anemia, symptomatic most likely 2/2 PUD
#ADELINA
#Weight loss without signs of malnutrition
#Anxiety d/o
#Chronic neck pain
Discharge Plan
-
Patient Disposition: Home (Routine Discharge)
Discharge Diagnosis/Procedures: Anemia
Blood Work: Weekly CBC with family doctor
Referrals:
Patricia Alberts DO [Family Provider, Family Practice] - in less than 1 week
Referral Note: Age appropriate cancer screening - advise PAP smear. Weekly H&H, if persistent anemia - hematology referral
Noreen Thorpe MD [Active, Gastroenterology] - 09/10/25 4:00 pm
Prescriptions:
New
ferrous sulfate 325 mg (65 mg iron) tablet
325 mg PO DAILY Qty: 30 0RF
pantoprazole 40 mg tablet,delayed release (DR/EC)
40 mg PO DIRECTED Qty: 90 0RF
Rx Instructions:
Take 40mg BID for 30 days, then switch to 40mg daily
sennosides-docusate sodium [Senna Plus] 8.6-50 mg Tablet
1 tab PO BIDPRN PRN (Reason: constipation) Qty: 30 0RF
Continued
sertraline 25 mg Tablet
25 mg PO HS
calcium carbonate [Tums] 200 mg calcium (500 mg) Tablet,Chewable
200 mg PO BIDPRN PRN (Reason: GERD)
montelukast [Singulair] 10 mg Tablet
10 mg PO HS
Discontinued
ibuprofen [Advil Liqui-Gel] 200 mg Capsule
200 mg PO Q6HPRN PRN (Reason: MILD PAIN)
cholecalciferol (vitamin D3) [Vitamin D3] 25 mcg (1,000 unit) Tablet
25 mcg PO DAILY
Discharge Orders:
Discharge Patient (As Directed); Ordered 08/08/25
Ordered By: Reid Yang
Discharge Date and Time
Print Language: CAMEROONIAN
--- NOTE | 2025-08-08 10:31 | CM ---
Chart reviewed and patient to return to home when stable.
Plan; Home when stable, no needs.
[2025-08-08] MEDS: FERRLECIT 110 MG IV (13:05)
[2025-08-08 14:14] VITALS: BP 131/72
== END 2025-08-08 15:08 | disposition home or self-care (01) | DRG 378 ==
LOC: 4 WEST ACU 10:02
PROVIDERS: Internal Medicine Gastroenterology; Student in an Organized Health Care Education/Training Program; ADMITTING PHYSICIAN Internal Medicine; CONSULT PHYSICIAN Internal Medicine; EMERGENCY PHYSICIAN Emergency Medicine; FAMILY PHYSICIAN Family Medicine
PROC: 30233N1 Transfusion of Nonautologous Red Blood Cells into Peripheral Vein, Percutaneous Approach (ICD-10-PCS; 2025-08-06)
PROC: 0DB98ZX Excision of Duodenum, Via Natural or Artificial Opening Endoscopic, Diagnostic (ICD-10-PCS; 2025-08-07)
PROC: 0DB68ZX Excision of Stomach, Via Natural or Artificial Opening Endoscopic, Diagnostic (ICD-10-PCS; 2025-08-07)
PROC: 0DJD8ZZ Inspection of Lower Intestinal Tract, Via Natural or Artificial Opening Endoscopic (ICD-10-PCS; 2025-08-07)
DX: K25.4 Chronic or unspecified gastric ulcer with hemorrhage (principal); D62 Acute posthemorrhagic anemia; F32.A Depression, unspecified; F41.9 Anxiety disorder, unspecified; E78.5 Hyperlipidemia, unspecified; G89.29 Other chronic pain; K21.9 Gastro-esophageal reflux disease without esophagitis; R63.4 Abnormal weight loss; K44.9 Diaphragmatic hernia without obstruction or gangrene; K31.89 Other diseases of stomach and duodenum; K64.8 Other hemorrhoids; Z68.28 Body mass index [BMI] 28.0-28.9, adult; Z87.891 Personal history of nicotine dependence
CPT/HCPCS: 80053; 82607; 82728; 82746; 83540; 83550; 83615; 84443; 85014; 85018; 85025; 85045; 85610; 85730; 86850; 86900; 86901; 86920; 88305; 88342; 99285; J2916; P9016